=== PATIENT | male | born 1940 | race African-American/Black ===

== ENCOUNTER 2023-01-28 12:12 | Emergency (ER) | payer OTHER ==
[~2023-01-28] VITALS: Ht 177.8 cm; Wt 82.0 kg
[2023-01-28 12:14] VITALS: O2SAT 98
[2023-01-28 13:10] LABS: HEMOGLOBIN. 10.1 g/dL (14.0-18.0); MEAN CORPUSCULAR HEMOGLOBIN 29.8 pg (28.0-32.0); MEAN CORPUSCULAR HGB CONC 33.8 g/dL (31.0-37.0); MEAN CORPUSCULAR VOLUME 88.3 fL (80.0-94.0); MEAN PLATELET VOLUME 7.1 fl (7.4-10.4); PLATELET 322 x1000/uL (130-400); RED BLOOD CELL COUNT 3.39 mill/uL (4.7-6.1); RED CELL DISTRIBUTION WIDTH 13.4 % (11.6-14.6); WHITE BLOOD COUNT 12.4 x1000/uL (4.5-11.0)
[2023-01-28 13:11] LABS: DIFFERENTIAL COMMENT 1
[2023-01-28 13:18] LABS: CHLORIDE 95 mEq/L (98-107); INDEX HEMOLYSI 1 (1-3); INDEX ICTERIC 1 (1-4); INDEX LIPEMIC 1 (1-3); SODIUM 130 mEq/L (136-145)
[2023-01-28 13:30] LABS: ALANINE AMINOTRANSFERASE 72 IU/L (13-61); ALBUMIN 2.2 g/dL (3.4-5.0); ASPARTATE AMINOTRANSFERASE 76 IU/L (15-37); BILIRUBIN TOTAL 0.5 mg/dL (0.1-1.0); CALCIUM 7.1 mg/dL (8.5-10.1); CARBON DIOXIDE 26 mEq/L (21-32); CREATININE 1.4 mg/dL (0.6-1.3); GLUCOSE 184 mg/dL (70-105); NT PRO B-TYPE NATRIURETIC PEP 2344 pg/mL (5-125); PLATELET ESTIMATE NORMAL; PROTEIN TOTAL 5.9 g/dL (6.0-8.3); TROPONIN I HIGH SENSITIVITY 22 ng/L (<78); UREA NITROGEN BLOOD 21 mg/dL (7-21)
[2023-01-28 14:09] LABS: LACTIC ACID 3.6 mmol/L (0.4-2.0); POTASSIUM 2.8 mEq/L (3.5-5.1)
[2023-01-28] MEDS ORDERED: CEFTRIAXONE 1GM PREMIX 50 ML IV ONE (15:00)
[2023-01-28] MEDS ORDERED: SODIUM CHLORIDE 0.9% 1,000 ML IV ONE (15:00)
[2023-01-28] MEDS ORDERED: POTASSIUM CHLORIDE 20MEQ/PACKET PO ONE (15:00)
[2023-01-28] MEDS ORDERED: ACETAMINOPHEN 325MG TABLET PO ONE (16:00)
[2023-01-28 16:51] LABS: CLARITY URINE CLOUDY (CLEAR); COLOR URINE YELLOW (YELLOW); GLUCOSE URINE NEGATIVE (NEGATIVE); KETONES URINE NEGATIVE (NEGATIVE); LEUKOCYTE ESTERASE URINE 2+ (NEGATIVE); NITRITE URINE NEGATIVE (NEGATIVE); OCCULT BLOOD URINE 2+ (NEGATIVE); PH URINE 5.5 (4.5-8.0); PROTEIN URINE 1+ (NEGATIVE); SPECIFIC GRAVITY URINE 1.015 (1.005-1.030); UROBILINOGEN URINE 0.2 E.U./dL (0.2-1.0)
[2023-01-28 17:03] LABS: TROPONIN I HIGH SENSITIVITY 26 ng/L (<78)
[2023-01-28 17:24] LABS: BACTERIA URINE 3+; SQUAMOUS EPITHELIAL CELL URINE FEW /lpf (RARE/1+); WBC URINE TNTC /hpf (0-2)
[2023-01-28 19:45] VITALS: BP 107/57; PULSE 70; RESP 16; TEMP 101.3
== END 2023-01-28 20:05 | disposition short-term general hospital (02) ==
LOC: ER 12:12
DX: R55 Syncope and collapse (principal); N39.0 Urinary tract infection, site not specified; E87.6 Hypokalemia; E11.9 Type 2 diabetes mellitus without complications; E78.00 Pure hypercholesterolemia, unspecified; I10 Essential (primary) hypertension
CPT/HCPCS: 99285; 96365; 71045; 96366; 87426; 82270; 80053; 81003; 83880; 83605; 85025; 87086; 87186; 84484; 87077; 36415; 93005; J0696; C9803

== ENCOUNTER 2023-07-07 11:16 | Emergency (ER) | payer OTHER ==
[~2023-07-07] VITALS: Ht 177.8 cm; Wt 79.0 kg
[2023-07-07 11:31] VITALS: O2SAT 100
[2023-07-07] MEDS: CEPHALEXIN 250MG CAPSULE PO ONE (12:10)
[2023-07-07] MEDS ORDERED: AMOX1TAB16 MT (12:17)
[2023-07-07] MEDS ORDERED: KETO-98 LEFTEYE (12:26)
[2023-07-07] MEDS ORDERED: CEPH500C2 MT (12:26)
[2023-07-07 12:30] VITALS: BP 129/65; PULSE 90; RESP 17; TEMP 98
== END 2023-07-07 12:40 | disposition home or self-care (01) ==
LOC: ER 11:35
DX: L03.213 Periorbital cellulitis (principal); E11.9 Type 2 diabetes mellitus without complications; E78.00 Pure hypercholesterolemia, unspecified; I10 Essential (primary) hypertension
CPT/HCPCS: 99283